=== PATIENT | female | born 2005 | race Two or more races ===

== ENCOUNTER 2024-08-20 23:17 | Emergency (ER) | payer OTHER ==
[~2024-08-20] VITALS: Ht 167.6 cm; Wt 60.8 kg
[2024-08-21 01:16] LABS: URINE APPEARANCE Turbid; URINE BILIRRUBIN Negative (NEGATIVE); URINE BLOOD Large; URINE COLOR Yellow; URINE GLUCOSE Negative (NEGATIVE); URINE KETONE Trace (NEGATIVE); URINE LEUKOCYTE Trace; URINE NITRATE Negative; URINE PROTEIN Trace (NEGATIVE); URINE UROBILINOGEN 0.2 E.U./dl
[2024-08-21 01:19] LABS: URINE BACTERIA 1359.7 uL (0.0-1933); URINE EPITHELIAL CELLS 15.8 uL (0.0-38.8); URINE RBC 107.9 uL (0.0-20.8); URINE WBC 30.6 uL (0.0-23.2)
[2024-08-21 01:27] LABS: HEMATOCRIT 33.4 % (36.0-45.00); HEMOGLOBIN 11.3 g/dL (12.0-15.00); MEAN CELL VOLUME 90.4 fL (80.00-100.00); MEAN CORPUSCULAR HEMOGLOBIN 30.7 pg (27.00-32.0); PLATELET COUNT 279 K/uL (150-450); RED BLOOD COUNT 3.69 M/uL (4.00-6.00); RED CELL DISTRIBUTION WIDTH 14.6 % (11.5-14.5)
[2024-08-21 01:38] LABS: URINE CAST 0.14 uL (0.0-1.40)
[2024-08-21] MEDS ORDERED: MACRODANTIN100 MG PO (02:43)
== END 2024-08-21 03:10 | disposition home or self-care (01) ==
LOC: ER 23:20
PROVIDERS: General Practice
DX: O20.8 Other hemorrhage in early pregnancy (principal); Z3A.17 17 weeks gestation of pregnancy

== ENCOUNTER 2024-09-08 11:50 | Outpatient (CLI) | payer OTHER ==
[~2024-09-08 11:50] MED LIST: MACRODANTIN100 MG PO
== END 2024-09-08 11:51 | disposition home or self-care (01) ==
LOC: PRENATAL 11:50
PROVIDERS: ATTEND Obstetrics & Gynecology Maternal & Fetal Medicine
DX: O44.00 Complete placenta previa NOS or without hemorrhage, unspecified trimester (principal); Z3A.20 20 weeks gestation of pregnancy

== ENCOUNTER 2024-10-30 02:34 | Outpatient (CLI) | payer OTHER ==
[2024-10-30 01:52] VITALS: BP 118/68
[2024-10-30] MEDS ORDERED: ENDOMETRIN100 MG (02:43)
[2024-10-30] MEDS ORDERED: PRENATAL TABLE1 EAC1 (02:44)
[2024-10-30] MEDS ORDERED: RINGERS SOLUTION,LACTATED 1,000 ML IV SCH (03:00)
[2024-10-30 03:04] LABS: HEMATOCRIT 28.8 % (36.0-45.00); HEMOGLOBIN 9.9 g/dL (12.0-15.00); MEAN CELL VOLUME 93.3 fL (80.00-100.00); MEAN CORPUSCULAR HEMOGLOBIN 32.2 pg (27.00-32.0); MEAN CORPUSCULAR HGB CONC 34.5 g/dl (32.0-36.0); PLATELET COUNT 237 K/uL (150-450); RED BLOOD COUNT 3.09 M/uL (4.00-6.00); RED CELL DISTRIBUTION WIDTH 13.6 % (11.5-14.5)
[2024-10-30 03:05] LABS: PH,URINE 6.5 (5.0-8.0); URINE APPEARANCE Clear; URINE BILIRRUBIN Negative (NEGATIVE); URINE BLOOD Negative; URINE COLOR Yellow; URINE GLUCOSE Negative (NEGATIVE); URINE KETONE Negative (NEGATIVE); URINE LEUKOCYTE Trace; URINE NITRATE Negative; URINE PROTEIN Negative (NEGATIVE); URINE UROBILINOGEN 0.2 E.U./dl
[2024-10-30 03:09] LABS: URINE BACTERIA 373.1 uL (0.0-1933); URINE EPITHELIAL CELLS 19.9 uL (0.0-38.8); URINE RBC 5.5 uL (0.0-20.8); URINE WBC 36.2 uL (0.0-23.2)
[2024-10-30 03:10] LABS: URINE CAST 0.29 uL (0.0-1.40)
[2024-10-30] MEDS ORDERED: ACETAMINOPHEN 500 MG GEL..CAP PO PRN (03:15)
[2024-10-30] MEDS ORDERED: CEFTRIAXONE SODIUM 1,000 MG VIAL IV ONE (04:00)
[2024-10-30 07:34] VITALS: BP 107/71
[2024-10-30] MEDS ORDERED: CEPHALEXIN500 M1 PO (10:53)
[2024-10-30] MEDS ORDERED: VITABEX IRON C1 EACH PO (10:54)
[2024-10-30 10:58] VITALS: BP 107/71
== END 2024-10-30 12:01 | disposition home or self-care (01) ==
LOC: OBS/DEL 02:34
PROVIDERS: ATTEND Obstetrics & Gynecology
DX: O26.893 Other specified pregnancy related conditions, third trimester (principal); R51.9 Headache, unspecified; Z3A.28 28 weeks gestation of pregnancy

== ENCOUNTER → 2024-12-01 10:31 | Outpatient (CLI) | payer OTHER ==
[~2024-12-01 10:31] MED LIST changes: +CEPHALEXIN500 M1 PO; +ENDOMETRIN100 MG; +PRENATAL TABLE1 EAC1; +VITABEX IRON C1 EACH PO
== END | disposition home or self-care (01) ==
LOC: PRENATAL 10:31
PROVIDERS: ATTEND Obstetrics & Gynecology Maternal & Fetal Medicine
DX: O26.849 Uterine size-date discrepancy, unspecified trimester (principal); O36.8199 Decreased fetal movements, unspecified trimester, other fetus; Z3A.32 32 weeks gestation of pregnancy

== ENCOUNTER 2025-01-11 14:50 | Inpatient (IN) | payer OTHER ==
[2025-01-11] VITALS (10 sets, daily range): BP systolic 118–144; BP diastolic 55–87
[~2025-01-11] VITALS: Ht 167.6 cm; Wt 74.4 kg
[2025-01-11] MEDS ORDERED: RINGERS SOLUTION,LACTATED 1,000 ML IV SCH (15:00)
[2025-01-11 16:19] LABS: PH,URINE 7.5 (5.0-8.0); URINE APPEARANCE Clear; URINE BILIRRUBIN Negative (NEGATIVE); URINE BLOOD Negative; URINE COLOR Yellow; URINE GLUCOSE Negative (NEGATIVE); URINE KETONE Negative (NEGATIVE); URINE LEUKOCYTE Negative; URINE NITRATE Negative; URINE PROTEIN Negative (NEGATIVE); URINE UROBILINOGEN 0.2 E.U./dl
[2025-01-11 16:20] LABS: URINE BACTERIA 582.5 uL (0.0-1933); URINE EPITHELIAL CELLS 27.5 uL (0.0-38.8); URINE WBC 16.4 uL (0.0-23.2)
[2025-01-11 16:22] LABS: BASO % 0.3 % (0.1-1.2); EOS # 0.04 (0.04-0.54); EOS % 0.3 % (0.7-7.0); HEMATOCRIT 32.8 % (34.1-44.9); HEMOGLOBIN 11.4 g/dL (11.2-15.7); LYMPH # 1.63 (1.18-3.74); LYMPH % 13.9 % (19.3-53.1); MEAN CORPUSCULAR HEMOGLOBIN 31.7 pg (25.6-32.2); MONO # 0.86 (0.24-0.82); MONO % 7.4 % (4.7-12.5); NEUT # 9.04 (1.56-6.13); NEUT % 77.3 % (34.0-71.1); PLATELET COUNT 235 K/uL (163-369); RED CELL DISTRIBUTION WIDTH 13.2 % (11.6-14.4); URINE CAST 0.14 uL (0.0-1.40); URINE RBC 1.9 uL (0.0-20.8)
[2025-01-11 16:42] LABS: INR < 0.93; PARTIAL THROMBOPLASTIN TIME 24.3 SECONDS (22.0-34.0)
[2025-01-11 16:46] LABS: BILIRUBIN TOTAL 0.18 mg/dL (0.3-1.2); CALCIUM 9.9 mg/dL (8.5-10.1); CREATININE SERUM 0.47 mg/dL (0.55-1.02); GFR 167.27; GLOBULINA 3.4 G/DL (2.4-3.5); POTASSIUM 4.12 mEq/L (3.5-5.1); TOTAL PROTEIN 6.4 gm/dL (6.4-8.2)
[2025-01-11] MEDS ORDERED: AMPICILLIN SODIUM 2,000 MG VIAL IV ONE (17:15)
[2025-01-11] MEDS ORDERED: MORPHINE SULFATE 4 MG/ML CARTRIDGE IV ONE (17:15)
[2025-01-11] MEDS ORDERED: OXYTOCIN 20 UNITS/500ML RL PIGGYBAG IV ONE (17:31)
[2025-01-11] MEDS ORDERED: ERYTHROMYCIN BASE OPHT 1GM EACH TUBE OP ONE ×2 (17:43→20:15)
[2025-01-11] MEDS ORDERED: CHLORHEXIDINE GLUCONATE 120 ML BOTTLE TOP ONE (17:43)
[2025-01-11] MEDS ORDERED: OXYTOCIN 20 UNITS/1000ML RL PIGGYBAG IV ONE (17:43)
[2025-01-11] MEDS ORDERED: LIDOCAINE HCL 1% 10ML VIAL ONE ×3 (17:43→19:00)
[2025-01-11] MEDS ORDERED: OXYTOCIN 500 ML IV ONE (18:00)
[2025-01-11] MEDS ORDERED: CHLORHEXIDINE GLUCONATE 120 ML BOTTLE TOP SCH (20:15)
[2025-01-11] MEDS ORDERED: OXYTOCIN 1,000 ML IV SCH (20:15)
[2025-01-11] MEDS ORDERED: LIDOCAINE HCL 1% 10ML VIAL IJ ONE (20:15)
[2025-01-11] MEDS ORDERED: AMPICILLIN SODIUM 1,000 MG VIAL IV SCH (21:00)
[2025-01-12] MEDS ORDERED: IBUprofen 400 MG TABLET PO SCH
[2025-01-12 01:20] VITALS: BP 137/83
[2025-01-12 07:36] LABS: BASO % 0.2 % (0.1-1.2); EOS # 0.03 (0.04-0.54); EOS % 0.2 % (0.7-7.0); HEMATOCRIT 32.4 % (34.1-44.9); HEMOGLOBIN 11.1 g/dL (11.2-15.7); LYMPH # 2.07 (1.18-3.74); LYMPH % 12.5 % (19.3-53.1); MEAN CORPUSCULAR HEMOGLOBIN 31.3 pg (25.6-32.2); MONO # 1.28 (0.24-0.82); MONO % 7.7 % (4.7-12.5); NEUT # 13.06 (1.56-6.13); NEUT % 78.9 % (34.0-71.1); PLATELET COUNT 237 K/uL (163-369); RED BLOOD COUNT 3.55 M/uL (3.93-5.22); RED CELL DISTRIBUTION WIDTH 13.2 % (11.6-14.4)
[2025-01-12 08:49] VITALS: BP 128/80
[2025-01-12 16:00] VITALS: BP 127/81
[2025-01-12 20:00] VITALS: BP 126/80
[2025-01-13 01:00] VITALS: BP 118/82
[2025-01-13 09:35] VITALS: BP 131/86
== END 2025-01-13 16:13 | disposition home or self-care (01) | DRG 807 ==
LOC: OBS/DEL 14:50 → OB/GYN 17:15 → LDR 17:15 → OB/GYN 20:34
PROVIDERS: Student in an Organized Health Care Education/Training Program; ADMIT Obstetrics & Gynecology; ATTEND Obstetrics & Gynecology
PROC: 10E0XZZ Delivery of Products of Conception, External Approach (ICD-10-PCS; principal; 2025-01-11)
PROC: 0UQMXZZ Repair Vulva, External Approach (ICD-10-PCS; 2025-01-11)
PROC: 0W8NXZZ Division of Female Perineum, External Approach (ICD-10-PCS; 2025-01-11)
PROC: 4A1HXCZ Monitoring of Products of Conception, Cardiac Rate, External Approach (ICD-10-PCS; 2025-01-11)
DX: O71.82 Other specified trauma to perineum and vulva (principal); O99.824 Streptococcus B carrier state complicating childbirth; O69.81X0 Labor and delivery complicated by cord around neck, without compression, not applicable or unspecified; Z37.0 Single live birth; Z3A.38 38 weeks gestation of pregnancy